=== PATIENT | male | born 1985 ===

== ENCOUNTER 2018-12-20 21:34 | Emergency (ER) | payer BC ==
--- NOTE | 2018-12-20 21:51 | Emergency Department Record ---
History of Present Illness - General Chief complaint: Pain Stated complaint: LT SHOULDER INJURY Time Seen by Provider: 12/20/18 21:43 Source: Patient Mode of Arrival: Ambulatory Limitations: No limitations - History of Present Illness Initial comments: The patient is here due to L shoulder pain for 2 hours. He was playing softball and fell onto the L shoulder. The patient has had L AC pain since. MD Complaint: Extremity pain, Joint pain Onset/Timin -: Hour(s) Location: Left, Shoulder History of Same: No Radiation: None Severity scale (1-10): 8 Consistency: Constant Improves with: Immobilization Worsens with: Other Associated Symptoms: Denies other symptoms - Related Data Home Medications Medication Instructions Recorded Confirmed Last Taken No Home Med [NO HOME MEDS] 12/20/18 12/20/18 Unknown Allergies Allergy/AdvReac Type Severity Reaction Status Date / Time No Known Drug Allergies Allergy Verified 12/20/18 21:41 Travel Screening - Travel/Exposure Within Last 30 Days Have you traveled within the last 30 days?: No - Travel/Exposure Within Last Year Have you traveled outside the [place] in the last year?: No - Additonal Travel Details Have you been exposed to anyone with a communicable illness?: No - Travel Symptoms Symptom Screening: None Review of Systems Constitutional: Denies: Chills, Fever Eyes: Denies: Eye discharge ENT: Denies: Congestion Respiratory: Denies: Cough Past Medical History - SOCIAL HISTORY Smoking Status: Never smoker Alcohol Use: Occasional Drug Use: None - RESPIRATORY Hx Respiratory Disorders: No - CARDIOVASCULAR Hx Cardio Disorders: No - NEURO Hx Neuro Disorders: No - GI Hx GI Disorders: No - Hx Genitourinary Disorders: No - ENDOCRINE Hx Endocrine Disorders: No - MUSCULOSKELETAL Hx Musculoskeletal Disorders: No - PSYCH Hx Psych Problems: No - HEMATOLOGY/ONCOLOGY Hx Hematology/Oncology Disorders: No Family Medical History Any Significant Family History?: No Physical Exam - General General Appearance: Alert, Oriented x3, Cooperative, No acute distress - Head Head exam: Atraumatic, Normocephalic, Normal inspection - Eye Eye exam: Normal appearance - Respiratory Respiratory exam: Normal lung sounds bilaterally. negative: Respiratory distres s - Cardiovascular Cardiovascular Exam: Regular rate, Normal rhythm, Normal heart sounds - GI/Abdominal GI/Abdominal exam: Soft, Normal bowel sounds. negative: Tenderness - Extremities Extremities exam: Normal inspection, Normal capillary refill, Tenderness (There is significant tenderness to the distal clavicle at the AC joint.), Other (The L arm is NVI.). negative: Full ROM (There is decreased ROM of the L shoulder due to pain.), Joint swelling - Neurological Neurological exam: Alert. negative: Motor sensory deficit Course Vital Signs 12/20/18 21:41 Temperature 98.2 F Pulse Rate [ 78 Right] Respiratory 20 Rate Blood Pressure 128/97 [Left Arm] Pulse Ox 98 - Reevaluation(s) Reevaluation #1: I did discuss the need to stay in the arm sling and see Dr. Johnson in the Specialty clinic later this week or next week. He is to not use the arm at work. 12/20/18 22:20 Medical Decision Making - Data Complexity MDM Data: Labs Ordered and/or Reviewed, X-Ray Ordered and/or Reviewed - Radiology Data Radiology results: Report reviewed (L shoulder: non-displaced fx distal clavicle.) Disposition Disposition: Discharge Clinical Impression: Clavicle fracture Qualifiers: Encounter type: initial encounter Clavicle location: lateral end Fracture type: closed Fracture alignment: nondisplaced Laterality: left Qualified Code(s): S42.035A - Nondisplaced fracture of lateral end of left clavicle, initial encounter for closed fracture Disposition: Home, Self-Care Condition: (2) Stable Instructions: Clavicle Fracture (ED) Additional Instructions: Please use Tylenol or Motrin for pain and please stay in the sling at all times. Please see Dr. Johnson in the Specialty Clinic later this week or next week. Do not use the arm at work. Referrals: [facility] [Provider Group] Forms: Patient Portal Access Time of Disposition: 22:21 Quality - Quality Measures Quality Measures: N/A - Blood Pressure Screening View Details: Yes Does Patient Have Any of the Following: No Blood Pressure Classification: Hypertensive Reading Systolic Measurement: 138 Diastolic Measurement: 104 Screening for High Blood Pressure: < First Hypertensive BP, F/U Documented > [[id number]] First Hypertensive Follow-up Interventions: Referral to alternative/primary care provider.
[2018-12-20] MEDS ORDERED: IBUPROFEN 600 MG TABLET PO ONE (22:08)
--- NOTE | 2018-12-21 18:44 | RADIOLOGY REPORT ---
EXAM: SHOULDER, LEFT HISTORY: PAIN POST FALL. TECHNIQUE: Internal and external humerus rotation AP views of the left shoulder are obtained as well as a scapular Y-view. COMPARISON: None. ENCOUNTER: Initial. FINDINGS: There is normal bone mineralization. There is evidence of a nondisplaced possibly comminuted fracture of the distal left clavicle. No other fracture is seen nor is there dislocation. The articular relations are maintained. No focal soft tissue abnormality. IMPRESSION: NONDISPLACED FRACTURE OF THE DISTAL LEFT CLAVICLE. JOB NUMBER: [id number] MTDD
== END 2018-12-20 22:42 | disposition home or self-care (01) ==
LOC: ER 21:34
DX: S42.035A Nondisplaced fracture of lateral end of left clavicle, initial encounter for closed fracture (principal); W19.XXXA Unspecified fall, initial encounter; Y93.64 Activity, baseball
CPT/HCPCS: 99283; 99284